=== PATIENT | female | born 1955 | race Caucasian/White ===

== ENCOUNTER 2020-10-31 19:31 | Inpatient (IN) | payer BC, SELFPAY ==
[2020-10-31] VITALS (12 sets, daily range): BP systolic 115–145; BP diastolic 65–99; PULSE 83–107; RESP 12–18; TEMP 36.2–36.8; O2SAT 95–100; BMI 28.0
[2020-10-31] MEDS: LACTATED RINGERS 1,000 ML 30 ML IV CONT ×2 (17:50→20:07)
--- NOTE | 2020-10-31 18:15 | WPDANESEPPF ---
Anes - Initial Pre Proc Eval Procedure: Operation Date: 10/31/20 18:00 Proposed Procedures p Exploratory Laparotomy, Pos Bowel Resec - Beti Pemberton MD Date/Time: 10/31/20 18:15 Surgeon: Beti Pemberton MD Pre Op Diagnosis: SBO Patient Data Age: 65 Gender: F Height: Weight: Last Vital Signs Temp 36.8 C 10/31/20 17:50 Pulse 85 10/31/20 17:50 Resp 16 10/31/20 17:50 BP 116/79 10/31/20 17:50 Pulse Ox 95 10/31/20 17:50 Allergies Allergy/AdvReac Type Severity Reaction Status Date / Time No Known Allergies Allergy Verified 10/31/20 17:51 Patient hx anesthesia problems: none Family hx anesthesia problems: none [facility] Past Medical History Medical History (Updated 10/31/20 @ 18:15 by Van Guaman DO) Hypertension Hypothyroidism Anes - Eval Final PreProcedure Day of Procedure 10/31/20 18:15 Patient weight: overweight Heart: regular rate and rhythm Lungs: clear to auscultation and normal air movement Airway: Mallampati scale class IV Neurological: alert and oriented Last oral intake: >/= 8 hours ASA classification: II Emergent: yes Anesthetic plan: proceed Anesthesia type and monitoring: general ETT and standard monitoring Informed Consent: The patient's anesthetic plan and its attendant risks and benefits were discussed with the patient/family/POA. Questions were solicited and answers provided to the satisfaction of the patient/family/POA.
--- NOTE | 2020-10-31 18:16 | PM.IMHP ---
H&P: HPI History of Present Illness Date/Time: 10/31/20 18:16 Chief Complaint: cecal volvulus Narrative: Anders Masters is a 65 year old female presenting from OSH c cecal volvulus. Pt reports she has had worsening abd pain since Wednesday. Pt seen in ED at OSH initially a few days ago and told plain film c/w ileus. Pt reports worsening of pain over next few days and CT today showed cecal volvulus. Pt also c leukocytosis. Pt reports assoc distention, N/V, reflux, anorexia. Pt denies previous episodes. Pt reports she has been having largely normal bowel fxn. Review of Systems Constitutional: Constitutional: Reports anorexia, Denies chills, Reports fatigue, Denies fever(s), Denies headache(s), Reports lethargy, Reports malaise, Reports poor appetite and Reports weakness Eyes: Eyes: Reports no additional eye complaints ENT: Reports system reviewed and no additional complaints, except as documented Cardiovascular: Cardiovascular: Reports no additional cardiovascular complaints Respiratory: Respiratory: Reports no additional respiratory complaints Gastrointestinal: Gastrointestinal: Reports as per HPI Genitourinary: Genitourinary: Reports no additional female genitourinary complaints Musculoskeletal: Musculoskeletal: Reports no additional musculoskeletal complaints Integumentary/Breasts: Skin/Breast: Reports system reviewed and no additional complaints, except as docu Neurologic: Reports system reviewed and no additional complaints, except as documented Psychiatric: Psychiatric: Reports no additional psychiatric complaints Endocrine: Endocrine: Reports no additional endocrine complaints Hematologic/Lymphatic: Hematologic/Lymphatic: Reports no additional hematologic/lymphatic complaints Allergic/Immunologic: Allergic/Immunologic: Reports no additional allergic/immunologic complaints [facility] Past Medical History Medical History Hypertension Hypothyroidism Comments no previous abdominal surgeries, no FH of colorectal cancer, IBD, denies tobacco, illicit drug use Meds Home Medications and Allergies Allergies Allergy/AdvReac Type Severity Reaction Status Date / Time No Known Allergies Allergy Verified 10/31/20 17:51 Vital Signs Vital Signs - 24 hr 10/31/20 17:50 Temperature 36.8 C Pulse Rate 85 Respiratory Rate 16 Blood Pressure 116/79 Pulse Oximetry 95 Exam Const: General: cooperative, alert, awake, acute distress moderate and uncomfortable Nutritional Appearance: overweight Orientation/consciousness: patient oriented x3 Limitations: no limitations HENMT: Head: normal to inspection and atraumatic Ears: hearing grossly normal bilaterally General nose exam: Normal external nose present Face and sinus: normal facial exam Mouth: Yes Normal oral and palatal mucosa present and Yes dry mucous membranes Eyes: General: appearance normal, both eyes and all related structures Pupils: Equal, round and reactive pupils present EOM: EOMs intact bilaterally Neck: Neck: normal visual inspection, full ROM and no lymphadenopathy Chest: Chest palpation & inspection: normal inspection of the chest Resp: Effort & Inspection: normal respiratory effort Auscultation: clear to auscultation bilaterally Cardio: Jugular venous distension: no JVD Rate: regular rate Rhythm: regular rhythm GI: Inspection: distended, no incisions and obesity GI Palp: Yes abdominal tenderness, Yes Firmness to palpation present (GI), Yes Tenderness to palpation present (GI), Yes Guarding due to palpation present (GI), No Hernia present and No Palpable mass present Other: soft, mod dist, diffuse TTP R>L c vol guarding Skin: General skin exam: normal color and no rashes or lesions noted Neuro: General: patient oriented x3 and CN's II-XI intact bilaterally Extrem: General: normal to inspection and full ROM Psych: Appearance: grossly normal H&P: Results Labs Labs: I reviewed
--- NOTE | 2020-10-31 18:25 | WPDHPUPDATE1 ---
History and Physical Update Update Date/Time: 10/31/20 18:25 History and Physical has been reviewed, including an updated exam of the patient. There are NO changes in the patient's condition. Risks, benefits, and alternatives have been discussed and questions answered. Patient agrees to proceed with procedure.
[2020-10-31] MEDS: BUPIVACAINE HCL 0.5% PF 30 ML VIAL INFILTRATE (18:48)
--- NOTE | 2020-10-31 19:38 | PM.PROC ---
Procedure Note - Detailed Date of procedure: 10/31/20 Pre-op diagnosis: SBO cecal volvulus Post-op diagnosis: same Procedure performed: Exploratory laparotomy, ileocecectomy Description of procedure: The patient was taken to the operating room placed in the supine position. After adequate induction of general anesthesia, the patient was prepped and draped in the normal sterile fashion. A time-out was undertaken to verify the patient's identity, as well as the procedure being performed. I began by making a generous midline incision. This was taken down into the peritoneal cavity. Entering the peritoneal cavity, a moderate amount of ascites was noted. I then began to examine the bowel contents. It was noted that the entirety of the small intestine was massively dilated. Upon getting to the area of the cecum, there is noted to be massive distention of the cecum as well as what looked to be a cecal volvulus. The cecum was noted to be very redundant and it was twisted upon itself the root of the mesentery. Upon untwisting the cecum, the cecum was noted to be viable however again massively dilated and redundant. Given this it was decided to proceed with ileocecectomy. I found a proximal resection point approximately 10 cm from the ileocecal valve. The ileum was transected at this point using a 55 MONCHO stapler. I then found the distal transection point at the level of the ascending colon, again this was transected with a 55 MONCHO stapler. I then took down the mesenteric attachments of the ileum and cecum with a LigaSure device, taking care to take down the right colic vessels. I then sent the specimen to pathology for further review. I then performed a [id number] functional end-to-end anastomosis between the ileum and the ascending colon using 55 MONCHO stapler followed by Tx 60 stapler. I did over-sew the staple lines with interrupted 3 0 silk sutures. I closed the mesenteric defect with a running 3 0 silk suture. The anastomosis was noted to be widely patent and tension-free. I then copiously irrigated the abdomen, no other pathology was noted. I did palpate the NG tube in the stomach. I then closed the anterior fascia with a running 0 looped PDS suture. The skin was then closed with skin gerardo. Sterile dressing was then placed. The patient tolerated the procedure well and was extubated in the operating room postoperatively. She will be sent to the recovery room in stable condition. Anesthesia: DONNA Surgeon: Beti Pemberton MD Estimated blood loss (mL): 50 Drains: No Packing: No Pathology: yes Complications: No immediate complications Condition: stable Disposition: PACU Findings: Cecal volvulus
[2020-10-31] MEDS: HYDROmorphone HCL INJ (*CRX) 1 MG/ML SYR 0.5 MG IV PUSH (21:23)
[2020-10-31] MEDS: FAMOTIDINE 20 MG/2 ML VIAL IV PUSH (21:29)
[2020-10-31] MEDS: LACTATED RINGERS 1,000 ML 100 ML IV CONT (21:29)
--- NOTE | 2020-10-31 22:24 | ADMGEN ---
This patient, Anders Masters, was admitted to Medical Room 249-01. Patient/family oriented to hospital policies and general routines including ID bracelet, bed and alarms, visiting hours, pain management, procedures, bathroom and other care routines, personal items, smoking policy, room service/diet, and visiting hours. Information on how to activate the Rapid Response Team has been discussed. Patient/Family are encouraged to report perceived risks to care and to ask questions if they do not understand what they are told or what they should do.
[2020-11-01] VITALS (7 sets, daily range): BP systolic 104–135; BP diastolic 67–83; PULSE 88–104; RESP 16–20; TEMP 36.4–36.8; O2SAT 95–100
[2020-11-01] MEDS: HYDROmorphone HCL INJ (*CRX) 1 MG/ML SYR 0.5 MG IV PUSH ×2 (00:02→02:08)
[2020-11-01 05:47] LABS: Basophils Percent Auto 0.1 % (0.2-1.2); Hematocrit 35.9 % (37.0-47.0); Hemoglobin 11.9 g/dL (12.0-15.0); Immature Granulocyte Absolute 0.04 K/mm3 (0.00-0.031); Immature Granulocyte Percent A 0.3 % (0-0.5); Lymphocytes Absolute Auto 0.72 K/mm3 (0.9-3.2); Lymphocytes Percent Auto 5.2 % (18.3-44.2); Mean Corpuscular HGB Conc 33.1 g/dl (32-36); Mean Corpuscular Hemoglobin 30.2 pg (26-34); Mean Corpuscular Volume 91.1 fl (80-100); Mean Platelet Volume 8.7 fl (7.4-10.4); Monocytes Absolute Auto 0.9 K/mm3 (0.1-0.6); Monocytes Percent Auto 6.8 % (2.6-8.5); Neutrophils Absolute Auto 12.1 K/mm3 (1.3-6.7); Neutrophils Percent Auto 87.6 % (45.5-73.1); Platelet Count Result 410 k/mm3 (150-375); Red Blood Count 3.94 M/mm3 (4.2-5.4); Red Cell Distribution Width 12.6 % (11.5-14.5); White Blood Count 13.9 K/mm3 (4.5-10.0)
[2020-11-01 05:55] LABS: Anion Gap 4 mmol/L (8-16); Blood Urea Nitrogen 20 mg/dL (7-17); Calcium 7.6 mg/dL (8.4-10.2); Carbon Dioxide 32 mmol/L (22-30); Chloride 99 mmol/L (98-107); Estimated CRCL calculation 78 ml/min; Estimated Glomerular Filt Rate > 60; Glucose 119 mg/dL (65-105); Potassium 3.5 mmol/L (3.4-5.0); Sodium 135 mmol/L (137-145)
[2020-11-01 06:16] LABS: Platelet Estimate Adequate (Adequate)
[2020-11-01 06:17] LABS: Atypical Lymphocytes Present
--- NOTE | 2020-11-01 07:46 | WPDANESPN ---
Anes - Prog Note Post-Op Date/Time: 11/01/20 07:46 Cardiovascular status: normal Respiratory status: normal Airway patency: baseline Mental status: baseline Post-Op hydration status: normal Vital Signs: Last Vital Signs Temp 36.6 C 11/01/20 04:00 Pulse 101 H 11/01/20 04:00 Resp 20 11/01/20 04:00 BP 119/77 11/01/20 04:00 Pulse Ox 95 11/01/20 04:00 Pain Score (VAS): 4 I/O: Intake & Output 10/31/20 10/31/20 11/01/20 15:59 23:59 07:59 Intake Total 100 200 Output Total 170 650 Balance -70 -450 Laboratory Tests 11/01/20 05:14 11/01/20 05:14 11/01/20 11/01/20 05:14 05:14 WBC 13.9 H RBC 3.94 L Hgb 11.9 L Hct 35.9 L MCV 91.1 MCH 30.2 MCHC 33.1 RDW 12.6 Plt Count 410 H MPV 8.7 Immature Gran % (Auto) 0.3 Neut % (Auto) 87.6 H Lymph % (Auto) 5.2 L [place] % (Auto) 6.8 Eos % (Auto) 0.0 Baso % (Auto) 0.1 L Lymph # (Auto) 0.72 L [place] # (Auto) 0.9 H Eos # (Auto) 0.0 Baso # (Auto) 0.0 Abs Immat Gran (auto) 0.04 H Absolute Neuts (auto) 12.1 H Absolute Nucleated RBC 0.0 Nucleated RBC % 0.0 Atypical Lymphocytes Present Platelet Estimate Adequate Sodium 135 L Potassium 3.5 Chloride 99 Carbon Dioxide 32 H Anion Gap 4 L BUN 20 H Creatinine 0.60 L Estim Creat Clear Calc 78 Estimated GFR > 60 Glucose 119 H Calcium 7.6 L Post-procedural complaints: none Patient Feedback: Patient satisfied with anesthetic care.
[2020-11-01] MEDS: LACTATED RINGERS 1,000 ML 100 ML IV CONT ×2 (08:13→18:40)
[2020-11-01] MEDS: ENOXAPARIN 40 MG/0.4 ML SYRINGE SUB-Q (08:15)
[2020-11-01] MEDS: FAMOTIDINE 20 MG/2 ML VIAL IV PUSH ×2 (08:15→20:35)
--- NOTE | 2020-11-01 11:27 | PM.PNGS ---
Progress Note: A&P Assessment and Plan (1) Cecal volvulus: Code(s): K56.2 - Volvulus Status: Acute Assessment and Plan: doing well, cont routine postop care, OOB/IS, dc pittman, NG decompression, await bowel fxn Subjective Subjective Date/Time Seen: 11/01/20 11:27 feels better, some incisional tenderness Review of Systems Review of Systems: All systems reviewed & are unremarkable except as noted in HPI and below Exam Const: General: cooperative and no acute distress Resp: Effort & Inspection: normal respiratory effort Auscultation: clear to auscultation bilaterally Cardio: Rate: regular rate Rhythm: regular rhythm GI: Inspection: normal to inspection, distended and incision GI Palp: Yes abdominal tenderness, Yes Soft to palpation, Yes Tenderness to palpation present (GI), No Guarding due to palpation present (GI) and No Rigid due to palpation Objective Data Vital Signs Vital Signs: Vital Signs - 24 hr 10/31/20 17:50 10/31/20 19:36 10/31/20 19:45 Temperature 36.8 C 36.2 C L Pulse Rate 85 83 85 Respiratory Rate 16 12 14 Blood Pressure 116/79 115/65 128/75 Pulse Oximetry 95 98 100 10/31/20 20:00 10/31/20 20:15 10/31/20 20:30 Temperature 36.5 C Pulse Rate 87 92 97 Respiratory Rate 17 17 17 Blood Pressure 123/86 121/67 118/86 Pulse Oximetry 100 99 99 10/31/20 20:45 10/31/20 21:00 10/31/20 21:15 Temperature 36.6 C 36.6 C Pulse Rate 98 106 H 102 H Respiratory Rate 18 18 18 Blood Pressure 127/74 144/86 H 144/82 H Pulse Oximetry 99 96 100 10/31/20 21:45 10/31/20 22:00 10/31/20 22:45 Temperature 36.4 C 36.6 C Pulse Rate 107 H 101 H Respiratory Rate 18 18 Blood Pressure 145/86 H 116/99 H Pulse Oximetry 100 100 100 11/01/20 00:00 11/01/20 04:00 11/01/20 10:16 Temperature 36.6 C 36.6 C 36.8 C Pulse Rate 104 H 101 H 92 Respiratory Rate 20 20 16 Blood Pressure 135/78 119/77 111/67 Pulse Oximetry 98 95 100 Intake/Output Intake/Output: Intake & Output 10/29/20 10/30/20 10/31/20 11/01/20 23:59 23:59 23:59 23:59 Intake Total 100 1200 Output Total 170 650 Balance -70 550 Meds/Results Medications: Active Medications Generic Name Dose Route Start Last Admin Trade Name Freq PRN Reason Stop Dose Admin Alvimopan 12 mg 11/01/20 21:00 Alvimopan 12 Mg Capsule PO 11/08/20 21:01 Q12HR [facility] Enoxaparin Sodium 40 mg 11/01/20 09:00 11/01/20 08:15 Enoxaparin 40 Mg/0.4 Ml Syringe SUB-Q 40 mg DAILY [facility] Administration Famotidine 20 mg 10/31/20 21:00 11/01/20 08:15 Famotidine 20 Mg/2 Ml Vial IV PUSH 20 mg Q12HR [facility] Administration Hydromorphone HCl 0.5 mg 10/31/20 19:31 11/01/20 02:08 Hydromorphone Hcl Inj (*Crx) 1 Mg/Ml Syr IV PUSH 0.5 mg Q2H PRN Administration Pain Rated 4-6 Lactated Ringer's 1,000 mls @ 100 mls/hr 10/31/20 19:35 11/01/20 08:13 Lr - Lactated Ringers Iv IV CONT 100 mls/hr .Q10H [facility] Administration Acetaminophen 1,000 mg in 100 mls @ 400 mls/hr 11/01/20 00:00 11/01/20 05:59 Ofirmev 1,000 Mg Ivpb IVPB 11/01/20 23:01 Infused Q6HR [facility] Infusion Naloxone HCl 0.1 mg 10/31/20 19:36 Naloxone Hcl 0.4 Mg/Ml Vial IV PUSH Q2M PRN Opiate Reversal Ondansetron HCl 4 mg 10/31/20 19:36 Ondansetron Inj 4 Mg/2 Ml Vial IV PUSH Q4H PRN Nausea And Vomiting Labs Labs: Laboratory Results - last 24 hr 11/01/20 11/01/20 05:14 05:14 WBC 13.9 H RBC 3.94 L Hgb 11.9 L Hct 35.9 L MCV 91.1 MCH 30.2 MCHC 33.1 RDW 12.6 Plt Count 410 H MPV 8.7 Immature Gran % (Auto) 0.3 Neut % (Auto) 87.6 H Lymph % (Auto) 5.2 L [place] % (Auto) 6.8 Eos % (Auto) 0.0 Baso % (Auto) 0.1 L Lymph # (Auto) 0.72 L [place] # (Auto) 0.9 H Eos # (Auto) 0.0 Baso # (Auto) 0.0 Abs Immat Gran (auto) 0.04 H Absolute Neuts (auto) 12.1 H Absolute Nucleated RBC 0.0 Nucleated RBC % 0.0 Atypical Lymphocytes Present Platelet Estimate Adequate
[2020-11-01] MEDS: ALVIMOPAN 12 MG CAPSULE PO (20:35)
[2020-11-02 00:57] VITALS: BP 132/81; PULSE 82; RESP 16; TEMP 36.2; O2SAT 98
[2020-11-02] MEDS: LACTATED RINGERS 1,000 ML 100 ML IV CONT (04:48)
[2020-11-02 06:02] LABS: Hematocrit 31.1 % (37.0-47.0); Hemoglobin 10.2 g/dL (12.0-15.0); Mean Corpuscular HGB Conc 32.8 g/dl (32-36); Mean Corpuscular Hemoglobin 29.7 pg (26-34); Mean Corpuscular Volume 90.7 fl (80-100); Mean Platelet Volume 8.6 fl (7.4-10.4); Platelet Count Result 385 k/mm3 (150-375); Red Blood Count 3.43 M/mm3 (4.2-5.4); Red Cell Distribution Width 12.7 % (11.5-14.5); White Blood Count 5.5 K/mm3 (4.5-10.0)
[2020-11-02 06:07] VITALS: BP 135/87; PULSE 88; RESP 18; TEMP 36.4; O2SAT 97
[2020-11-02 06:19] LABS: Anion Gap 7 mmol/L (8-16); Blood Urea Nitrogen 17 mg/dL (7-17); Calcium 7.8 mg/dL (8.4-10.2); Carbon Dioxide 26 mmol/L (22-30); Chloride 101 mmol/L (98-107); Estimated CRCL calculation 92 ml/min; Estimated Glomerular Filt Rate > 60; Glucose 92 mg/dL (65-105); Potassium 3.4 mmol/L (3.4-5.0); Sodium 134 mmol/L (137-145)
[2020-11-02] MEDS: ALVIMOPAN 12 MG CAPSULE PO ×2 (09:35→20:28)
[2020-11-02] MEDS: FAMOTIDINE 20 MG/2 ML VIAL IV PUSH ×2 (09:35→20:28)
[2020-11-02] MEDS: ENOXAPARIN 40 MG/0.4 ML SYRINGE SUB-Q (09:35)
--- NOTE | 2020-11-02 12:50 | PM.PNGS ---
Progress Note: A&P Assessment and Plan (1) Cecal volvulus: Code(s): K56.2 - Volvulus Status: Acute Assessment and Plan: Await return bowel function. Continue NPO, NG tube, IV fluids. Encouraged ambulation. Will DC Rodriguez catheter. Start daily dressing changes today. Subjective Subjective Date/Time Seen: 11/02/20 12:50 Post Op day: 2 Patient reports: no new complaints, pain is less, no flatus, no bowel movement and afebrile Exam Const: General: comfortable and no acute distress; No confusion Orientation/consciousness: patient oriented x3 and No confusion Resp: Effort & Inspection: normal respiratory effort Auscultation: clear to auscultation bilaterally Cardio: Rate: regular rate Rhythm: regular rhythm GI: Inspection: non-distended and incision ( healing well.) GI Palp: Yes Soft to palpation, Yes Tenderness to palpation present (GI), No Guarding due to palpation present (GI) and No Rebound tenderness present Auscultation: absent bowel sounds Neuro: General: patient oriented x3, no focal motor deficits and No confusion Extrem: General: no calf tenderness and no edema Psych: Affect: normal affect Insight: Good insight present (Psych) Judgement: Good judgement present (Psych) Objective Data Vital Signs Vital Signs: Vital Signs - 24 hr 11/01/20 13:30 11/01/20 18:10 11/01/20 21:13 Temperature 36.7 C 36.7 C 36.4 C L Pulse Rate 98 91 88 Respiratory Rate 20 18 16 Blood Pressure 104/69 132/73 135/83 Pulse Oximetry 100 97 97 11/02/20 00:57 11/02/20 06:07 Temperature 36.2 C L 36.4 C Pulse Rate 82 88 Respiratory Rate 16 18 Blood Pressure 132/81 135/87 Pulse Oximetry 98 97 Intake/Output Intake/Output: Intake & Output 10/30/20 10/31/20 11/01/20 11/02/20 23:59 23:59 23:59 23:59 Intake Total 100 2400 1080 Output Total 170 1275 850 Balance -70 1125 230 Meds/Results Medications: Active Medications Generic Name Dose Route Start Last Admin Trade Name Freq PRN Reason Stop Dose Admin Alvimopan 12 mg 11/01/20 21:00 11/02/20 09:35 Alvimopan 12 Mg Capsule PO 11/08/20 21:01 12 mg Q12HR [facility] Administration Amitriptyline HCl 50 mg 11/03/20 09:00 Amitriptyline Hcl 25 Mg Tablet PO DAILY [facility] Enoxaparin Sodium 40 mg 11/01/20 09:00 11/02/20 09:35 Enoxaparin 40 Mg/0.4 Ml Syringe SUB-Q 40 mg DAILY [facility] Administration Famotidine 20 mg 10/31/20 21:00 11/02/20 09:35 Famotidine 20 Mg/2 Ml Vial IV PUSH 20 mg Q12HR [facility] Administration Fluoxetine HCl 40 mg 11/03/20 09:00 Fluoxetine Hcl 20 Mg Capsule PO DAILY [facility] Hydromorphone HCl 0.5 mg 10/31/20 19:31 11/01/20 02:08 Hydromorphone Hcl Inj (*Crx) 1 Mg/Ml Syr IV PUSH 0.5 mg Q2H PRN Administration Pain Rated 4-6 Lactated Ringer's 1,000 mls @ 80 mls/hr 10/31/20 19:35 11/02/20 04:48 Lr - Lactated Ringers Iv IV CONT 100 mls/hr .[id number] [facility] Administration Naloxone HCl 0.1 mg 10/31/20 19:36 Naloxone Hcl 0.4 Mg/Ml Vial IV PUSH Q2M PRN Opiate Reversal Ondansetron HCl 4 mg 10/31/20 19:36 Ondansetron Inj 4 Mg/2 Ml Vial IV PUSH Q4H PRN Nausea And Vomiting Labs Labs: Laboratory Results - last 24 hr 11/02/20 11/02/20 05:46 05:46 WBC 5.5 RBC 3.43 L Hgb 10.2 L Hct 31.1 L MCV 90.7 MCH 29.7 MCHC 32.8 RDW 12.7 Plt Count 385 H MPV 8.6 Sodium 134 L Potassium 3.4 Chloride 101 Carbon Dioxide 26 Anion Gap 7 L BUN 17 Creatinine 0.50 L Estim Creat Clear Calc 92 Estimated GFR > 60 Glucose 92 Calcium 7.8 L
[2020-11-02] MEDS: KCL 40 MEQ/D5/0.9% SOD CHL 1,000 ML 80 ML IV CONT (14:48)
[2020-11-02 22:02] VITALS: BP 151/82; PULSE 81; RESP 20; TEMP 36.2; O2SAT 100
[2020-11-03] MEDS: KCL 40 MEQ/D5/0.9% SOD CHL 1,000 ML 80 ML IV CONT (02:51)
[2020-11-03 05:01] VITALS: BP 136/70; PULSE 87; RESP 18; TEMP 36.1; O2SAT 97
[2020-11-03] MEDS: AMITRIPTYLINE HCL 25 MG TABLET 50 MG PO (08:51)
[2020-11-03] MEDS: FAMOTIDINE 20 MG/2 ML VIAL IV PUSH (08:51)
[2020-11-03] MEDS: ALVIMOPAN 12 MG CAPSULE PO ×2 (08:51→20:39)
[2020-11-03] MEDS: FLUoxetine HCL 20 MG CAPSULE 40 MG PO (08:52)
[2020-11-03] MEDS: ENOXAPARIN 40 MG/0.4 ML SYRINGE SUB-Q (08:52)
[2020-11-03 08:59] LABS: Hematocrit 30.4 % (37.0-47.0); Hemoglobin 10.1 g/dL (12.0-15.0); Mean Corpuscular HGB Conc 33.2 g/dl (32-36); Mean Corpuscular Hemoglobin 30.4 pg (26-34); Mean Corpuscular Volume 91.6 fl (80-100); Mean Platelet Volume 9.2 fl (7.4-10.4); Platelet Count Result 430 k/mm3 (150-375); Red Blood Count 3.32 M/mm3 (4.2-5.4); Red Cell Distribution Width 12.9 % (11.5-14.5); White Blood Count 4.1 K/mm3 (4.5-10.0)
[2020-11-03 09:08] VITALS: RESP 18; O2SAT 99
[2020-11-03 09:24] LABS: Anion Gap 3 mmol/L (8-16); Blood Urea Nitrogen 13 mg/dL (7-17); Calcium 7.9 mg/dL (8.4-10.2); Carbon Dioxide 29 mmol/L (22-30); Chloride 103 mmol/L (98-107); Estimated CRCL calculation 112 ml/min; Estimated Glomerular Filt Rate > 60; Glucose 151 mg/dL (65-105); Potassium 3.7 mmol/L (3.4-5.0); Sodium 135 mmol/L (137-145)
--- NOTE | 2020-11-03 12:39 | PM.PNGS ---
Progress Note: A&P Assessment and Plan (1) Cecal volvulus: Code(s): K56.2 - Volvulus Status: Acute Assessment and Plan: Bowel function returning. Will discontinue NG tube and start clear liquids. Resume home meds. Start oral pain meds. Increase ambulation. Continues to improve. Subjective Subjective Date/Time Seen: 11/03/20 12:39 Post Op day: 3 Patient reports: no new complaints, feels better, pain is less, bowel movement and afebrile Exam Const: General: comfortable and no acute distress; No confusion Orientation/consciousness: patient oriented x3 and No confusion GI: Inspection: non-distended and incision ( Wound healing well.) GI Palp: Yes Soft to palpation, Yes Tenderness to palpation present (GI), No Guarding due to palpation present (GI) and No Rebound tenderness present Neuro: General: patient oriented x3, no focal motor deficits and No confusion Extrem: General: no calf tenderness and no edema Psych: Affect: normal affect Insight: Good insight present (Psych) Judgement: Good judgement present (Psych) Objective Data Vital Signs Vital Signs: Vital Signs - 24 hr 11/02/20 22:02 11/03/20 05:01 11/03/20 09:08 Temperature 36.2 C L 36.1 C L Pulse Rate 81 87 Respiratory Rate 20 18 18 Blood Pressure 151/82 H 136/70 Pulse Oximetry 100 97 99 Intake/Output Intake/Output: Intake & Output 10/31/20 11/01/20 11/02/20 11/03/20 23:59 23:59 23:59 23:59 Intake Total 100 2400 1320 1000 Output Total 170 1275 1650 850 Balance -70 1125 -330 150 Meds/Results Medications: Active Medications Generic Name Dose Route Start Last Admin Trade Name Freq PRN Reason Stop Dose Admin Acetaminophen 500 mg 11/03/20 12:25 Acetaminophen 500 Mg Tablet PO Q6H PRN Mild Pain (1-3) or Fever Hydrocodone Bitart/Acetaminophen 1 tab 11/03/20 12:25 Hydrocodone/Acetaminophen (*Crx) 5-325 Mg Tablet PO Q4H PRN Pain Rated 4-6 Hydrocodone Bitart/Acetaminophen 1 tab 11/03/20 12:25 Hydrocodone/Acetaminophen (*Crx) 7.5-325 Mg Tablet PO Q4H PRN Pain Rated 7-10 Alvimopan 12 mg 11/01/20 21:00 11/03/20 08:51 Alvimopan 12 Mg Capsule PO 11/08/20 21:01 12 mg Q12HR [facility] Administration Amitriptyline HCl 50 mg 11/03/20 09:00 11/03/20 08:51 Amitriptyline Hcl 25 Mg Tablet PO 50 mg DAILY [facility] Administration Enoxaparin Sodium 40 mg 11/01/20 09:00 11/03/20 08:52 Enoxaparin 40 Mg/0.4 Ml Syringe SUB-Q 40 mg DAILY [facility] Administration Famotidine 20 mg 11/03/20 21:00 Famotidine 20 Mg Tablet PO Q12HR [facility] Fluoxetine HCl 40 mg 11/03/20 09:00 11/03/20 08:52 Fluoxetine Hcl 20 Mg Capsule PO 40 mg DAILY [facility] Administration Potassium Chloride/Dextrose/Sod Cl 1,000 mls @ 80 mls/hr 11/02/20 13:30 11/03/20 02:51 Kcl 40 Meq/D5ns IV CONT 80 mls/hr .[id number] [facility] Administration Levothyroxine Sodium 100 mcg 11/04/20 09:00 Levothyroxine Sodium 100 Mcg Tablet PO DAILY [facility] Morphine Sulfate 1 mg 11/03/20 12:25 Morphine Sulfate (*Crx) 2 Mg/Ml Inj IV PUSH Q2H PRN Pain Rated 4-6 Morphine Sulfate 2 mg 11/03/20 12:25 Morphine Sulfate (*Crx) 4 Mg/Ml Inj IV PUSH Q2H PRN Pain Rated 7-10 Naloxone HCl 0.1 mg 10/31/20 19:36 Naloxone Hcl 0.4 Mg/Ml Vial IV PUSH Q2M PRN Opiate Reversal Non-Formulary Medication 10 tablet 11/04/20 09:00 Lisinopril-Hydrochlorothiazide PO 12/04/20 09:01 DAILY [facility] Ondansetron HCl 4 mg 10/31/20 19:36 Ondansetron Inj 4 Mg/2 Ml Vial IV PUSH Q4H PRN Nausea And Vomiting Labs Labs: Laboratory Results - last 24 hr 11/03/20 11/03/20 08:12 08:12 WBC 4.1 L RBC 3.32 L Hgb 10.1 L Hct 30.4 L MCV 91.6 MCH 30.4 MCHC 33.2 RDW 12.9 Plt Count 430 H MPV 9.2 Sodium 135 L Potassium 3.7 Chloride 103 Carbon Dioxide 29 Anion Gap 3 L BUN 13 Creatinine 0.40 L Estim Creat Clear Calc 112 Estim
[2020-11-03 14:00] VITALS: BP 136/80; PULSE 78; RESP 16; TEMP 36.2; O2SAT 100
[2020-11-03] MEDS: FAMOTIDINE 20 MG TABLET PO (20:39)
[2020-11-03 21:23] VITALS: BP 143/82; PULSE 83; RESP 16; TEMP 37; O2SAT 98
[2020-11-04 05:26] LABS: Hematocrit 26.4 % (37.0-47.0); Hemoglobin 8.9 g/dL (12.0-15.0); Mean Corpuscular HGB Conc 33.7 g/dl (32-36); Mean Corpuscular Volume 88.9 fl (80-100); Mean Platelet Volume 8.9 fl (7.4-10.4); Platelet Count Result 386 k/mm3 (150-375); Red Blood Count 2.97 M/mm3 (4.2-5.4); Red Cell Distribution Width 12.4 % (11.5-14.5); White Blood Count 4.9 K/mm3 (4.5-10.0)
[2020-11-04] MEDS: LEVOTHYROXINE SODIUM 100 MCG TABLET PO (05:45)
[2020-11-04 05:54] LABS: Anion Gap 0 mmol/L (8-16); Blood Urea Nitrogen 12 mg/dL (7-17); Calcium 7.6 mg/dL (8.4-10.2); Carbon Dioxide 30 mmol/L (22-30); Chloride 103 mmol/L (98-107); Estimated CRCL calculation 112 ml/min; Estimated Glomerular Filt Rate > 60; Glucose 94 mg/dL (65-105); Potassium 3.2 mmol/L (3.4-5.0); Sodium 133 mmol/L (137-145)
[2020-11-04 06:00] VITALS: BP 132/80; PULSE 81; RESP 18; TEMP 36.4; O2SAT 95
--- NOTE | 2020-11-04 06:30 | PM.PNGS ---
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 Will advance slowly to full liquid diet. (2) Hypokalemia: Code(s): E87.6 - Hypokalemia Status: Acute Assessment and Plan: Supplement potassium with oral KCl. (3) Anemia: Code(s): D64.9 - Anemia, unspecified Status: Acute Assessment and Plan: Anemic on admission and has drifted down. Feel like the decreased from yesterday is most likely dilutional. No evidence of bleeding. Subjective Subjective Date/Time Seen: 11/04/20 06:30 Post Op day: 4 Patient reports: no new complaints, tolerating liquids well, bowel movement and afebrile Exam Const: General: comfortable and no acute distress; No confusion Orientation/consciousness: patient oriented x3 and No confusion GI: Inspection: distended and incision ( healing well) GI Palp: Yes Soft to palpation, Yes Tenderness to palpation present (GI) ( minimal tenderness), No Guarding due to palpation present (GI) and No Rebound tenderness present Auscultation: normal bowel sounds Neuro: General: patient oriented x3, no focal motor deficits and No confusion Extrem: General: no calf tenderness and no edema Psych: Affect: normal affect Insight: Good insight present (Psych) Judgement: Good judgement present (Psych) Objective Data Vital Signs Vital Signs: Vital Signs - 24 hr 11/03/20 09:08 11/03/20 14:00 11/03/20 21:23 Temperature 36.2 C L 37.0 C Pulse Rate 78 83 Respiratory Rate 18 16 16 Blood Pressure 136/80 143/82 H Pulse Oximetry 99 100 98 11/04/20 06:00 Temperature 36.4 C L Pulse Rate 81 Respiratory Rate 18 Blood Pressure 132/80 Pulse Oximetry 95 Intake/Output Intake/Output: Intake & Output 11/01/20 11/02/20 11/03/20 11/04/20 23:59 23:59 23:59 23:59 Intake Total 2400 1320 2240 480 Output Total 1275 1650 1400 900 Balance 1125 -330 840 -420 Meds/Results Medications: Active Medications Generic Name Dose Route Start Last Admin Trade Name Freq PRN Reason Stop Dose Admin Acetaminophen 500 mg 11/03/20 12:25 Acetaminophen 500 Mg Tablet PO Q6H PRN Mild Pain (1-3) or Fever Hydrocodone Bitart/Acetaminophen 1 tab 11/03/20 12:25 Hydrocodone/Acetaminophen (*Crx) 5-325 Mg Tablet PO Q4H PRN Pain Rated 4-6 Hydrocodone Bitart/Acetaminophen 1 tab 11/03/20 12:25 Hydrocodone/Acetaminophen (*Crx) 7.5-325 Mg Tablet PO Q4H PRN Pain Rated 7-10 Alvimopan 12 mg 11/01/20 21:00 11/03/20 20:39 Alvimopan 12 Mg Capsule PO 11/08/20 21:01 12 mg Q12HR LAVELLE Administration Amitriptyline HCl 50 mg 11/03/20 09:00 11/03/20 08:51 Amitriptyline Hcl 25 Mg Tablet PO 50 mg DAILY LAVELLE Administration Enoxaparin Sodium 40 mg 11/01/20 09:00 11/03/20 08:52 Enoxaparin 40 Mg/0.4 Ml Syringe SUB-Q 40 mg DAILY LAVELLE Administration Famotidine 20 mg 11/03/20 21:00 11/03/20 20:39 Famotidine 20 Mg Tablet PO 20 mg Q12HR LAVELLE Administration Fluoxetine HCl 40 mg 11/03/20 09:00 11/03/20 08:52 Fluoxetine Hcl 20 Mg Capsule PO 40 mg DAILY LAVELLE Administration Hydrochlorothiazide 12.5 mg 11/04/20 09:00 Hydrochlorothiazide 12.5 Mg Capsule PO QAM [facility] Levothyroxine Sodium 100 mcg 11/04/20 06:30 11/04/20 05:45 Levothyroxine Sodium 100 Mcg Tablet PO 100 mcg DAILY@0630 LAVELLE Administration Lisinopril 10 mg 11/04/20 09:00 Lisinopril 10 Mg Tablet PO QAM [facility] Morphine Sulfate 1 mg 11/03/20 12:25 Morphine Sulfate (*Crx) 2 Mg/Ml Inj IV PUSH Q2H PRN Pain Rated 4-6 Morphine Sulfate 2 mg 11/03/20 12:25 Morphine Sulfate (*Crx) 4 Mg/Ml Inj IV PUSH Q2H PRN Pain Rated 7-10 Naloxone HCl 0.1 mg 10/31/20 19:36 Naloxone Hcl 0.4 Mg/Ml Vial IV PUSH Q2M PRN Opiate Reversal Ondansetron HCl
[2020-11-04] MEDS: AMITRIPTYLINE HCL 25 MG TABLET 50 MG PO (08:24)
[2020-11-04] MEDS: FLUoxetine HCL 20 MG CAPSULE 40 MG PO (08:24)
[2020-11-04] MEDS: lisinopriL 10 MG TABLET PO (08:24)
[2020-11-04] MEDS: FAMOTIDINE 20 MG TABLET PO ×2 (08:24→20:44)
[2020-11-04] MEDS: hydroCHLOROthiazide 12.5 MG CAPSULE PO (08:24)
[2020-11-04] MEDS: ALVIMOPAN 12 MG CAPSULE PO ×2 (08:24→20:44)
[2020-11-04] MEDS: POTASSIUM CHLORIDE 20 MEQ TABLET.ER 40 MEQ PO ×2 (08:25→16:52)
[2020-11-04] MEDS: ENOXAPARIN 40 MG/0.4 ML SYRINGE SUB-Q (08:26)
[2020-11-04 14:00] VITALS: BP 118/89; PULSE 95; RESP 18; TEMP 36.2; O2SAT 97
[2020-11-04 20:00] VITALS: BP 148/84; PULSE 95; RESP 18; TEMP 37.2; O2SAT 98
[2020-11-05 04:00] VITALS: BP 164/98; PULSE 98; RESP 20; TEMP 36.5; O2SAT 99
[2020-11-05] MEDS: LEVOTHYROXINE SODIUM 100 MCG TABLET PO (06:20)
[2020-11-05 06:22] LABS: Hematocrit 30.3 % (37.0-47.0); Hemoglobin 10.2 g/dL (12.0-15.0); Mean Corpuscular HGB Conc 33.7 g/dl (32-36); Mean Corpuscular Hemoglobin 29.7 pg (26-34); Mean Corpuscular Volume 88.3 fl (80-100); Mean Platelet Volume 9.2 fl (7.4-10.4); Platelet Count Result 511 k/mm3 (150-375); Red Blood Count 3.43 M/mm3 (4.2-5.4); Red Cell Distribution Width 12.3 % (11.5-14.5); White Blood Count 6.2 K/mm3 (4.5-10.0)
[2020-11-05 06:31] LABS: Anion Gap 4 mmol/L (8-16); Blood Urea Nitrogen 9 mg/dL (7-17); Carbon Dioxide 28 mmol/L (22-30); Chloride 98 mmol/L (98-107); Estimated CRCL calculation 112 ml/min; Estimated Glomerular Filt Rate > 60; Glucose 91 mg/dL (65-105); Potassium 3.5 mmol/L (3.4-5.0); Sodium 130 mmol/L (137-145)
--- NOTE | 2020-11-05 06:53 | PM.PNGS ---
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 Still seems a little distended with hypoactive bowel sounds. Will advance to solid food but what her again today. If continues to do well, will go home tomorrow. (2) Hypokalemia: Code(s): E87.6 - Hypokalemia Status: Acute Assessment and Plan: Continue to supplement. Sodium is now low at 130. IV fluids have been stopped. Does take hydrochlorothiazide. (3) Anemia: Code(s): D64.9 - Anemia, unspecified Status: Acute Assessment and Plan: H&H improved from yesterday. Still anemic but in probably improving due to diuresis. Subjective Subjective Date/Time Seen: 11/05/20 06:53 Post Op day: 5 Patient reports: no new complaints, tolerating liquids well ( Reports appetite is poor), bowel movement and afebrile Exam Const: General: comfortable and no acute distress; No confusion Orientation/consciousness: patient oriented x3 and No confusion Resp: Effort & Inspection: normal respiratory effort Auscultation: clear to auscultation bilaterally GI: Inspection: distended and incision ( dry and intact. Healing well.) GI Palp: Yes Soft to palpation, Yes Tenderness to palpation present (GI) ( Minimal, appropriate, tenderness), No Guarding due to palpation present (GI), No Hernia present and No Palpable mass present Auscultation: Hypoactive bowel sounds present Neuro: General: patient oriented x3, no focal motor deficits and No confusion Extrem: General: no calf tenderness and no edema Psych: Affect: normal affect Insight: Good insight present (Psych) Judgement: Good judgement present (Psych) Objective Data Vital Signs Vital Signs: Vital Signs - 24 hr 11/04/20 14:00 11/04/20 20:00 11/05/20 04:00 Temperature 36.2 C L 37.2 C 36.5 C Pulse Rate 95 95 98 Respiratory Rate 18 18 20 Blood Pressure 118/89 148/84 H 164/98 H Pulse Oximetry 97 98 99 Intake/Output Intake/Output: Intake & Output 11/02/20 11/03/20 11/04/20 11/05/20 23:59 23:59 23:59 23:59 Intake Total 1320 2240 2340 100 Output Total 1650 1400 1775 500 Balance -330 840 565 -400 Meds/Results Medications: Active Medications Generic Name Dose Route Start Last Admin Trade Name Freq PRN Reason Stop Dose Admin Acetaminophen 500 mg 11/03/20 12:25 Acetaminophen 500 Mg Tablet PO Q6H PRN Mild Pain (1-3) or Fever Hydrocodone Bitart/Acetaminophen 1 tab 11/03/20 12:25 Hydrocodone/Acetaminophen (*Crx) 5-325 Mg Tablet PO Q4H PRN Pain Rated 4-6 Hydrocodone Bitart/Acetaminophen 1 tab 11/03/20 12:25 Hydrocodone/Acetaminophen (*Crx) 7.5-325 Mg Tablet PO Q4H PRN Pain Rated 7-10 Alvimopan 12 mg 11/01/20 21:00 11/04/20 20:44 Alvimopan 12 Mg Capsule PO 11/08/20 21:01 12 mg Q12HR LAVELLE Administration Amitriptyline HCl 50 mg 11/03/20 09:00 11/04/20 08:24 Amitriptyline Hcl 25 Mg Tablet PO 50 mg DAILY LAVELLE Administration Enoxaparin Sodium 40 mg 11/01/20 09:00 11/04/20 08:26 Enoxaparin 40 Mg/0.4 Ml Syringe SUB-Q 40 mg DAILY LAVELLE Administration Famotidine 20 mg 11/03/20 21:00 11/04/20 20:44 Famotidine 20 Mg Tablet PO 20 mg Q12HR LAVELLE Administration Fluoxetine HCl 40 mg 11/03/20 09:00 11/04/20 08:24 Fluoxetine Hcl 20 Mg Capsule PO 40 mg DAILY LAVELLE Administration Hydrochlorothiazide 12.5 mg 11/04/20 09:00 11/04/20 08:24 Hydrochlorothiazide 12.5 Mg Capsule PO 12.5 mg QAM LAVELLE Administration Levothyroxine Sodium 100 mcg 11/04/20 06:30 11/05/20 06:20 Levothyroxine Sodium 100 Mcg Tablet PO 100 mcg DAILY@0630 LAVELLE Administration Lisinopril 10 mg 11/04/20 09:00 11/04/20 08:24 Lisinopril 10 Mg Tablet PO 10 mg QAM LAVELLE Administration Morphine Sulfate 1 mg 11/03/20 12:25 Morphine Sulfate (*Crx) 2 Mg/Ml Inj IV PUSH Q2H PRN Pain Rat
[2020-11-05] MEDS: FAMOTIDINE 20 MG TABLET PO ×2 (08:27→20:10)
[2020-11-05] MEDS: POTASSIUM CHLORIDE 20 MEQ TABLET.ER 40 MEQ PO ×2 (08:27→17:04)
[2020-11-05] MEDS: FLUoxetine HCL 20 MG CAPSULE 40 MG PO (08:27)
[2020-11-05] MEDS: ENOXAPARIN 40 MG/0.4 ML SYRINGE SUB-Q (08:28)
[2020-11-05] MEDS: ALVIMOPAN 12 MG CAPSULE PO ×2 (08:28→20:10)
[2020-11-05] MEDS: lisinopriL 10 MG TABLET PO (08:28)
[2020-11-05] MEDS: AMITRIPTYLINE HCL 25 MG TABLET 50 MG PO (08:28)
[2020-11-05] MEDS: hydroCHLOROthiazide 12.5 MG CAPSULE PO (08:28)
[2020-11-05 14:00] VITALS: BP 138/81; PULSE 111; RESP 16; TEMP 36.2; O2SAT 100
--- NOTE | 2020-11-05 16:06 | ADMGEN ---
This patient, Anders Masters, was admitted to [facility] Room 221-02. Patient oriented to hospital policies and general routines including ID bracelet, bed and alarms, visiting hours, pain management, procedures, bathroom and other care routines, personal items, smoking policy, room service/diet, and visiting hours. Information on how to activate the Rapid Response Team has been discussed. Patient is encouraged to report perceived risks to care and to ask questions if they do not understand what they are told or what they should do.
[2020-11-05 16:28] VITALS: BP 142/98; PULSE 97; RESP 20; TEMP 36.6; O2SAT 100
[2020-11-05 20:09] VITALS: BP 145/89; PULSE 95; RESP 18; TEMP 36.3; O2SAT 98
[2020-11-06 05:12] LABS: Hematocrit 32.1 % (37.0-47.0); Hemoglobin 10.8 g/dL (12.0-15.0); Mean Corpuscular HGB Conc 33.6 g/dl (32-36); Mean Corpuscular Hemoglobin 30.7 pg (26-34); Mean Corpuscular Volume 91.2 fl (80-100); Mean Platelet Volume 8.5 fl (7.4-10.4); Platelet Count Result 516 k/mm3 (150-375); Red Blood Count 3.52 M/mm3 (4.2-5.4); Red Cell Distribution Width 12.4 % (11.5-14.5); White Blood Count 9.3 K/mm3 (4.5-10.0)
[2020-11-06 05:30] LABS: Anion Gap 5 mmol/L (8-16); Blood Urea Nitrogen 11 mg/dL (7-17); Carbon Dioxide 26 mmol/L (22-30); Chloride 97 mmol/L (98-107); Estimated CRCL calculation 92 ml/min; Estimated Glomerular Filt Rate > 60; Glucose 87 mg/dL (65-105); Potassium 4.2 mmol/L (3.4-5.0); Sodium 128 mmol/L (137-145)
[2020-11-06] MEDS: LEVOTHYROXINE SODIUM 100 MCG TABLET PO (06:10)
[2020-11-06 08:00] VITALS: PULSE 95; RESP 18; O2SAT 98
[2020-11-06] MEDS: AMITRIPTYLINE HCL 25 MG TABLET 50 MG PO (08:20)
[2020-11-06] MEDS: lisinopriL 10 MG TABLET PO (08:21)
[2020-11-06] MEDS: FLUoxetine HCL 20 MG CAPSULE 40 MG PO (08:21)
[2020-11-06] MEDS: FAMOTIDINE 20 MG TABLET PO (08:22)
[2020-11-06] MEDS: ENOXAPARIN 40 MG/0.4 ML SYRINGE SUB-Q (08:24)
--- NOTE | 2020-11-06 09:46 | PM.DS ---
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 (2) Hyponatremia: Code(s): E87.1 - Hypo-osmolality and hyponatremia Status: Acute Assessment and Plan: Probably due to her hydrochlorothiazide associated with blood pressure medication. This is held on discharge. Follow-up electrolytes will be done and she will see her primary care doctor. (3) Anemia: Code(s): D64.9 - Anemia, unspecified Status: Chronic Assessment and Plan: stable, probably due more to dilutional factors rather than any surgical loss. Only 50 cc estimated surgical blood loss (4) Hypokalemia: Code(s): E87.6 - Hypokalemia Status: Resolved Assessment and Plan: supplemented during admission and resolved by discharge. DS: Summary Hospital Course Reason for hospitalization: Cecal volvulus Hospital Course: patient presented with a 3 day history of abdominal pain and distention. CT scan showed cecal volvulus. She was admitted and taken to the operating room on 10/31/2020. Ileocolic resection was performed. Postoperatively the patient had an NG tube for about 3 days. Bowel function returned and her NG tube was removed. Her diet was gradually advanced to regular food. Her catheter was removed on postop day 2. And she voided without difficulty. The patient did have some electrolyte abnormalities with hypokalemia. Her potassium was supplemented and this resolved. She also had gradual decrease in her serum sodium and it was 128 on discharge. Her hydrochlorothiazide and losartan blood pressure medication will be held on discharge. These will be reach checked next week. She was able to be discharged on 11/06/2020 in good condition. Her gerardo were removed prior to discharge and Steri-Strips were placed. She will follow up with Dr. Pemberton in 1 week. Status at Discharge Functional status at discharge: independent ambulation Overall status at discharge: patient is back to baseline Time Spent with Patient Time attestation: Total time spent providing and/or coordinating discharge services: Time spent: Less than 30 minutes Exam Const: General: comfortable and no acute distress; No confusion Orientation/consciousness: patient oriented x3 and No confusion GI: Inspection: non-distended and incision ( Incision healing well) GI Palp: Yes Soft to palpation, Yes Tenderness to palpation present (GI) ( minimal tenderness), No Guarding due to palpation present (GI) and No Rebound tenderness present Auscultation: normal bowel sounds Neuro: General: patient oriented x3, no focal motor deficits and No confusion Extrem: General: no calf tenderness and no edema Psych: Affect: normal affect Insight: Good insight present (Psych) Judgement: Good judgement present (Psych) DS: Data Data Completed and Pending Completed studies during hospitalization: Pending at discharge 10/31/20 18:58 Surgical [PTH] Routine Labs on day of discharge: Labs from last 24 hours 11/06/20 11/06/20 04:55 04:55 WBC 9.3 RBC 3.52 L Hgb 10.8 L Hct 32.1 L MCV 91.2 MCH 30.7 MCHC 33.6 RDW 12.4 Plt Count 516 H MPV 8.5 Sodium 128 L Potassium 4.2 Chloride 97 L Carbon Dioxide 26 Anion Gap 5 L BUN 11 Creatinine 0.50 L Estim Creat Clear Calc 92 Estimated GFR > 60 Glucose 87 Calcium 8.0 L Discharge Plan Discharge Attending physician on discharge: Beti Pemberton Discharging Clinician: Collin Gant Anticipated Discharge Date/Time: 11/06/20 09:57 Patient Disposition: Home, Self-Care Activity: may shower, no straining and as tolerated Diet: as tolerated and regular Wound Care
== END 2020-11-06 11:40 | disposition home or self-care (01) | DRG 330 ==
LOC: ANH2MED 11-01 10:59 → ANHTRC 11-06 09:58 → ANH2MED 11-08 12:55 → ANHTRC 11-08 12:55
PROVIDERS: Admitting Provider Surgery; PCP Family Medicine; Visit Provider Surgery
PROC: 0DTH0ZZ Resection of Cecum, Open Approach (ICD-10-PCS; CPT 49000; principal; 2020-10-31 18:00)
DX: K56.2 Volvulus (principal); E87.1 Hypo-osmolality and hyponatremia; T50.2X5A Adverse effect of carbonic-anhydrase inhibitors, benzothiadiazides and other diuretics, initial encounter; D64.89 Other specified anemias; E87.6 Hypokalemia; I10 Essential (primary) hypertension; E03.9 Hypothyroidism, unspecified; D72.829 Elevated white blood cell count, unspecified
CPT/HCPCS: 36415; 80048; 85025; 85027; 88307; A9270; J0131; J0330; J1100; J1170; J1650; J2405; J2704; J2710; J3010; J3480; J7120

== ENCOUNTER 2020-11-11 13:55 | Outpatient (CLI) | payer BC, SELFPAY ==
[2020-11-11 14:24] LABS: Hematocrit 33.5 % (37.0-47.0); Mean Corpuscular HGB Conc 32.8 g/dl (32-36); Mean Corpuscular Hemoglobin 30.3 pg (26-34); Mean Corpuscular Volume 92.3 fl (80-100); Mean Platelet Volume 8.1 fl (7.4-10.4); Platelet Count Result 692 k/mm3 (150-375); Red Blood Count 3.63 M/mm3 (4.2-5.4); Red Cell Distribution Width 13.5 % (11.5-14.5); White Blood Count 15.8 K/mm3 (4.5-10.0)
[2020-11-11 14:29] LABS: Anion Gap 8 mmol/L (8-16); Blood Urea Nitrogen 9 mg/dL (7-17); Calcium 8.3 mg/dL (8.4-10.2); Carbon Dioxide 31 mmol/L (22-30); Chloride 98 mmol/L (98-107); Estimated Glomerular Filt Rate > 60; Glucose 105 mg/dL (65-105); Sodium 137 mmol/L (137-145)
== END 2020-11-11 13:56 | disposition home or self-care (01) ==
PROVIDERS: PCP Family Medicine; Visit Provider Surgery
DX: E87.1 Hypo-osmolality and hyponatremia (principal); D64.9 Anemia, unspecified
CPT/HCPCS: 36415; 80048; 85027

== ENCOUNTER 2020-11-14 09:41 | Outpatient (CLI) | payer BC, SELFPAY ==
[2020-11-14 10:05] LABS: Basophils Absolute Auto 0.1 K/mm3 (0.0-0.1); Basophils Percent Auto 0.7 % (0.2-1.2); Eosinophils Percent Auto 0.1 % (0-4.4); Hematocrit 32.7 % (37.0-47.0); Hemoglobin 10.5 g/dL (12.0-15.0); Immature Granulocyte Absolute 0.16 K/mm3 (0.00-0.031); Immature Granulocyte Percent A 1.4 % (0-0.5); Lymphocytes Percent Auto 21.6 % (18.3-44.2); Mean Corpuscular HGB Conc 32.1 g/dl (32-36); Mean Corpuscular Hemoglobin 30.2 pg (26-34); Mean Platelet Volume 8.2 fl (7.4-10.4); Monocytes Absolute Auto 0.9 K/mm3 (0.1-0.6); Monocytes Percent Auto 7.6 % (2.6-8.5); Neutrophils Percent Auto 68.6 % (45.5-73.1); Platelet Count Result 608 k/mm3 (150-375); Red Blood Count 3.48 M/mm3 (4.2-5.4); Red Cell Distribution Width 13.6 % (11.5-14.5); White Blood Count 11.6 K/mm3 (4.5-10.0)
[2020-11-14 10:10] LABS: Add Urine Microscopic? YES; Appearance Urine Clear (Clear); Bacteria Urine Trace /hpf; Bilirubin Urine Negative (Negative); Blood Urine 1+ (Negative); Color Urine Yellow (Yellow); Glucose Urine UA Negative (Negative); Ketones Urine Negative (Negative); Leukocyte Esterase Ur Trace LEU/UL (Negative); Mucus Urine Heavy /lpf; Nitrate Urine Negative (Negative); Protein Urine Negative (Negative); RBC Urine 0-2 /hpf (0-2); Specific Grav Ur 1.015 (1.001-1.035); Squamous Epithelial Cell Urine Rare /hpf (Few); Urobilinogen Urine Negative mg/dL (<2.0)
[2020-11-14 10:21] LABS: Anion Gap 3 mmol/L (8-16); Blood Urea Nitrogen 10 mg/dL (7-17); Calcium 8.2 mg/dL (8.4-10.2); Carbon Dioxide 30 mmol/L (22-30); Chloride 105 mmol/L (98-107); Estimated Glomerular Filt Rate > 60; Glucose 105 mg/dL (65-105); Potassium 3.9 mmol/L (3.4-5.0); Sodium 138 mmol/L (137-145)
== END 2020-11-14 09:42 | disposition home or self-care (01) ==
LOC: ANHLAB 09:42
PROVIDERS: PCP Family Medicine; Visit Provider Surgery
DX: D64.9 Anemia, unspecified (principal); D72.829 Elevated white blood cell count, unspecified
CPT/HCPCS: 36415; 80048; 81001; 85025